=== PATIENT | male | born 1990 | race Caucasian/White ===

== ENCOUNTER 2019-02-09 02:29 | Emergency (ER) | payer OTHER ==
[2019-02-09] MEDS ORDERED: RABIES VACCINE (PCEC)/PF 2.5 UNIT/VIAL IM ONE (02:53)
--- NOTE | 2019-02-09 02:53 | PDOC ---
History of Present Illness - General Chief Complaint: Revisit,Rabies Injection Stated Complaint: RABIES INJECTION/[employer] Time Seen by Provider: 02/09/19 02:49 History Source: Patient Exam Limitations: No Limitations - History of Present Illness Initial Comments: Rinku Andrade is a 28 yo healthy M w no pmh who works for the [employer] and presents to the [facility] er to obtain the day 3 rabies vaccines after he was bit and scratched by a potentially rabid raccon 3 days ago. He received a call when he was on duty as there was a rabid racoon. He came and killed the rabid racoon but in the process got bit and scratched. He went to the hospital and received both the day 1 vaccine and rabies immuno globulin. He was told that he needs to receive the actual vaccine again on days 3, 7, and 14. He now presents to the ER asking for his day 3 vaccine. Denies fevers, chills, numbness, tingling, weakness, or hypersalivation PCP: None PSH: Pyloromyotomy when he was 5 months old Social Hx: Denies smoking, drinking, or other substance usage Allergies: Cefaclor Review of Systems - Review of Systems Able to Perform ROS?: Yes Comments:: CONSTITUTIONAL: Absent: fever, no chills, no fatigue EYES: Absent: visual changes ENT: Absent: ear pain, no sore throat CARDIOVASCULAR: Absent: chest pain, no palpitations RESPIRATORY: Absent: cough, no SOB GI: Absent: abdominal pain, no nausea, no vomiting, no constipation, no diarrhea GENITOURINARY: Absent: dysuria, no frequency, no hematuria MUSKULOSKELETAL: Absent: back pain, no arthralgia, no myalgia SKIN: Absent: rash NEURO: Absent: headache *Physical Exam - Physical Exam Comments: GENERAL: Well-appearing, well-nourished. No apparent distress. HEENT: Normocephalic, atraumatic. PERRL, EOM intact. CARDIOVASCULAR: Normal S1, S2. Regular rate and rhythm. PULMONARY: No evidence of respiratory distress. Lungs clear to auscultation bilaterally. No wheezing, rales or rhonchi. ABDOMEN: Soft, non-distended, non-tender. EXTREMITIES: Normal ROM in all four extremities. No gross deformities. SKIN: Warm, dry. No rash NEUROLOGICAL: No focal neurological deficits. Medical Decision Making - Medical Decision Making Rinku Andrade is a 28 yo healthy M w no pmh who works for the [employer] and presents to the [facility] er to obtain the day 3 rabies vaccines after he was bit and scratched by a potentially rabid raccon 3 days ago. He received a call when he was on duty as there was a rabid racoon. He came and killed the rabid racoon but in the process got bit and scratched. He went to the hospital and received both the day 1 vaccine and rabies immuno globulin. He was told that he needs to receive the actual vaccine again on days 3, 7, and 14. He now presents to the ER asking for his day 3 vaccine. Denies fevers, chills, numbness, tingling, weakness, or hypersalivation VS: WNL MDM: Patient presents after rabies exposure for day 3 vaccine Plan: Administer vaccine, DC Dispo: Home, PCP referal Discharge - Discharge Information Problems reviewed: Yes Clinical Impression/Diagnosis: Rabies exposure, Rabies, need for prophylactic vaccination against Condition: Stable Disposition: HOME - Admission No - Follow up/Referral Referrals: [facility] [place] [Provider Group] - Patient Discharge Instructions Patient Printed Discharge Instructions: DI for Rabies Vaccine Additional Instructions: Please make sure to come back for the rest of your vaccine shots. Come back to the ER immediately if you get a fever, start vomiting, have excessive salivation, or any other new or worsening concerns Thank you for coming to the [facility] ER. We hope you feel better soon! Print Language: ITALIAN - Post Discharge Activity
[2019-02-09 03:13] VITALS: BP 140/89; PULSE 75; TEMP 98.6; BMI 25.0
--- NOTE | 2019-02-09 03:29 | PDOC ---
Attending Attestation - Resident Resident Name: Jaciel Jimenez - ED Attending Attestation I have performed the following: I have examined & evaluated the patient, The case was reviewed & discussed with the resident, I agree w/resident's findings & plan, Exceptions are as noted - HPI HPI: 02/09/19 03:27 28-year-old male no past medical history here today requesting his second rabies vaccination. States he was bitten or scratched by a raccoon when he was trying to save somebody else from a potentially rabid raccoon the raccoon was captured he received a bite or scratch unsure which over the palm of his right hand since then no redness no swelling no exudates denies any fevers chills no headaches no other complaints he received his first vaccine at [facility] is here today for his second vaccine at the 4 dose series - Physicial Exam PE: 02/09/19 03:28 Awake alert no acute distress lungs are clear bilaterally heart is regular without any murmurs rubs or gallops skin of the right hand demonstrates a small punctate scabbed wound which is healing secondarily there is no acute redness or discharge - Medical Decision Making 02/09/19 03:28 28-year-old requesting second rabies vaccine will be given to the patient paperwork was filled out he will have to return for the third and fourth dose
== END 2019-02-09 04:01 | disposition home or self-care (01) ==
LOC: JER 02:29
PROC: 3E0234Z Introduction of Serum, Toxoid and Vaccine into Muscle, Percutaneous Approach (ICD-10-PCS; principal; 2019-02-09)
DX: Z23 Encounter for immunization (principal); Z20.3 Contact with and (suspected) exposure to rabies
CPT/HCPCS: 90675; 99281-25

== ENCOUNTER 2019-02-13 12:56 | Emergency (ER) | payer OTHER ==
[2019-02-13 13:02] VITALS: BP 131/80; PULSE 83; TEMP 98.6; BMI 25.0
[2019-02-13] MEDS ORDERED: RABIES VACCINE (PCEC)/PF 2.5 UNIT/VIAL IM ONE ×2 (13:28→13:31)
--- NOTE | 2019-02-13 13:29 | PDOC ---
History of Present Illness - General Chief Complaint: Revisit,Rabies Injection Stated Complaint: FOLLOW UP VISIT Time Seen by Provider: 02/13/19 13:26 History Source: Patient Exam Limitations: No Limitations - History of Present Illness Initial Comments: 02/13/19 19:40 28 year old male presents for day #7 of rabies vaccine. Denies symptoms or adverse reactions Severity: Yes: mild Location: reports: extremities Respiratory Risk Factors: reports: other (racoon bite) Associated Symptoms: reports: denies symptoms Past History - Travel Traveled outside of the country in the last 30 days: No Close contact w/someone who was outside of country & ill: No - Past Medical History Allergies/Adverse Reactions: Allergies Allergy/AdvReac Type Severity Reaction Status Date / Time cefaclor [From [facility]] Allergy Verified 02/13/19 13:01 - Psycho Social/Smoking Cessation Hx Smoking History: Never smoked Have you smoked in the past 12 months: No Information on smoking cessation initiated: No Hx Alcohol Use: No Drug/Substance Use Hx: No Review of Systems - Review of Systems Able to Perform ROS?: Yes Is the patient limited Eritrean proficient: No Constitutional: No: Chills, Fever, Malaise, Night Sweats HEENTM: No: Nose Pain, Throat Pain Respiratory: No: Shortness of Breath, SOB at Rest, Productive cough Cardiac (ROS): No: Chest Pain, Irregular Heart Rate : No: Burning, Hematuria, Incontinence Musculoskeletal: No: Gout, Muscle Weakness Integumentary: No: Bruising, Erythema Neurological: No: Headache, Numbness Endocrine: No: Excessive Sweating, Intolerance to Heat Hematologic/Lymphatic: No: See HPI, Anemia, Easy Bleeding *Physical Exam - Vital Signs Last Vital Signs Temp Pulse Resp BP Pulse Ox 98.6 F 83 18 131/80 99 02/13/19 12:59 02/13/19 12:59 02/13/19 12:59 02/13/19 12:59 02/13/19 12:59 - Physical Exam General Appearance: Yes: Nourished, Appropriately Dressed HEENT: positive: TMs Normal, Pharynx Normal Neck: positive: Supple. negative: Lymphadenopathy (R), Lymphadenopathy (L) Respiratory/Chest: positive: Lungs Clear Cardiovascular: positive: Regular Rhythm, Regular Rate Extremity: positive: Normal Capillary Refill Neurologic: positive: Fully Oriented, Alert Medical Decision Making - Medical Decision Making 02/13/19 19:42 28 year old male here for day #7 of rabies vaccine. rabies vaccine ordered Discharge - Discharge Information Problems reviewed: Yes Clinical Impression/Diagnosis: Need for rabies vaccination Condition: Stable Disposition: HOME - Admission No - Follow up/Referral - Patient Discharge Instructions Additional Instructions: Please return to emergency room 02/20/2019 - Post Discharge Activity Work/Back to School Note: Back to Work
== END 2019-02-13 13:42 | disposition home or self-care (01) ==
LOC: JERFT 12:56
PROC: 3E0234Z Introduction of Serum, Toxoid and Vaccine into Muscle, Percutaneous Approach (ICD-10-PCS; principal; 2019-02-13)
DX: Z20.3 Contact with and (suspected) exposure to rabies (principal); W55.51XD Bitten by raccoon, subsequent encounter; Z88.8 Allergy status to other drugs, medicaments and biological substances
CPT/HCPCS: 90675; 99281-25

== ENCOUNTER 2019-02-20 12:11 | Emergency (ER) | payer OTHER ==
[2019-02-20] MEDS ORDERED: RABIES VACCINE (PCEC)/PF 2.5 UNIT/VIAL IM ONE ×2 (12:41→12:55)
[2019-02-20 12:42] VITALS: BP 116/79; PULSE 76; TEMP 98.4; BMI 25.0
--- NOTE | 2019-02-20 12:54 | PDOC ---
Suture Removal/Wound Check HPI - History of Present Illness Chief Complaint: Revisit,Rabies Injection Stated Complaint: FOLLOW UP Time Seen by Provider: 02/20/19 12:39 History Source: Yes: Patient Exam Limitations: Yes: No Limitations Treated at: [facility] ED - Previous ED Treatment Type of procedure performed on last visit: Yes: Other (rabies prophylaxis) Tetanus Immunization: Yes: Up to Date Antibiotics Prescribed: No Past History - Travel Traveled outside of the country in the last 30 days: No Close contact w/someone who was outside of country & ill: No - Past Medical History Allergies/Adverse Reactions: Allergies Allergy/AdvReac Type Severity Reaction Status Date / Time cefaclor [From Ceclor] Allergy Verified 02/20/19 12:36 - Psycho Social/Smoking Cessation Hx Smoking History: Never smoked Have you smoked in the past 12 months: No Hx Alcohol Use: No Drug/Substance Use Hx: No Suture Removal/Wound Check PE - Physical Exam Laceration/Wound Check Symptoms: reports: None Current Severity Level: None Maximum Severity Level: None Pain Localization: None Pain Radiation: None *Review of Systems - Review of Systems Able to Perform ROS?: Yes Constitutional: No: Chills, Fever HEENTM: No: Nose Pain, Nose Congestion, Throat Swelling, Mouth Pain Respiratory: No: Orthopnea, Shortness of Breath, Wheezing Cardiac (ROS): No: Chest Pain ABD/GI: No: Poor Appetite : No: Dysuria, Incontinence Integumentary: No: Change in Color, Flushing Endocrine: No: Excessive Sweating, Increased Hunger Hematologic/Lymphatic: No: Blood Clots *Physical Exam - Physical Exam General Appearance: Yes: Nourished HEENT: positive: [place] Neck: positive: Supple. negative: Lymphadenopathy (R) Respiratory/Chest: positive: Lungs Clear Cardiovascular: positive: Regular Rhythm, Regular Rate Extremity: positive: Normal Capillary Refill Neurologic: positive: Fully Oriented, Alert Medical Decision Making - Medical Decision Making 02/20/19 12:54 28 year old male here for rabies vaccines. No symptoms racoon bite -rabies vaccine im Discharge - Discharge Information Problems reviewed: Yes Clinical Impression/Diagnosis: Rabies exposure Condition: Good Disposition: HOME - Admission No - Follow up/Referral - Patient Discharge Instructions Patient Printed Discharge Instructions: DI for Rabies Vaccine Additional Instructions: Return to nearest emergency room if you have symptoms - Post Discharge Activity
== END 2019-02-20 13:30 | disposition home or self-care (01) ==
LOC: JERFT 12:11
PROC: 3E0234Z Introduction of Serum, Toxoid and Vaccine into Muscle, Percutaneous Approach (ICD-10-PCS; principal; 2019-02-20)
DX: Z20.3 Contact with and (suspected) exposure to rabies (principal); W55.51XD Bitten by raccoon, subsequent encounter
CPT/HCPCS: 90675; 99281-25